=== PATIENT | male | born 1985 | race American Indian/Alaskan Native ===

== ENCOUNTER 2016-07-14 22:58 | Emergency (ER) | payer MEDICAID ==
[2016-07-14 23:10] VITALS: BP 116/60
[2016-07-15] MEDS ORDERED: Cephalexin 500 MG Cap PO ONE (00:06)
--- NOTE | 2016-07-15 00:15 | EDM.PDOC ---
[id number] 4d POSSIBLE BROKEN RIGHT HAND Time Seen by Provider: 07/14/16 23:05 Source: Reports: Patient History Limitations: Reports: No limitations - History of Present Illness INITIAL COMMENTS - FREE TEXT/NARRATIVE: c/o pain to right hand. Notes slammed in sliding van door yesterday afternoon. Originally some discomfort but pain and swelling worse tonight. Occurred When: yesterday Method of Injury: other Severity: mild Allergies/ADRs: Allergies cinnamon Allergy (Verified 07/14/16 23:06) Other Home Medications: Ambulatory Orders . [No Known Home Meds] 05/10/14 [Confirmed 07/14/16] Past Medical History - Past Health History Medical/Surgical History: Denies Medical/Surgical History Social & Family History - Family History Family Medical History: Noncontributory - Tobacco Use Smoking Status *Q: Current Every Day Smoker Years of Tobacco use: 3 Packs/Tins Daily: 0.4 - Caffeine Use Caffeine Use: Reports: Coffee - Alcohol Use Days Per Week of Alcohol Use: 0 - Recreational Drug Use Recreational Drug Use: No - Living Situation & Occupation Living situation: Reports: single Occupation: employed Review of Systems - Review of Systems Review Of Systems: See Below Constitutional: Reports: no symptoms Musculoskeletal: Reports: hand pain (right) Skin: Reports: wound (1cm lacertion back of hand mid 3rd MCP) Neurological: Reports: No Symptoms Trauma Exam - Physical Exam Exam: See Below Exam Limited By: No limitations General Appearance: Reports: alert, mild distress Head: Reports: atraumatic, normocephalic Ears: Reports: normal external exam Nose: Reports: normal inspection Throat/Mouth: Reports: Normal inspection Neck: Reports: full range of motion, normal alignment Respiratory Exam: Reports: no respiratory distress, lungs clear Cardiovascular: Reports: normal peripheral pulses, regular rate, rhythm Extremities: Reports: normal range of motion, pain with movement, tenderness ( right hand swollen no obvious deformity) Neurologic: Reports: oriented x 3 Skin: Reports: Ecchymosis Comments: 1 cm superficial laceration no bleeding or redness to back right hand mid MCP ED TRAUMA EXTREMITY PROCEDURES - Splinting Right Upper Extremity Splint site: hand Splint material: aluminum-foam Splint design: other (metacarpal) Applied & form fitted by: provider Provider post-splint application NV check: NV status normal Complications: No Progress/Comments: bandaide dressing to laceration Course - Vital Signs Last Recorded V/S: Last Vital Signs Temp 96.6 F 07/14/16 23:07 Pulse 60 07/14/16 23:07 Resp 16 07/14/16 23:07 BP 116/60 07/14/16 23:07 Pulse Ox 99 07/14/16 23:07 - Orders/Labs/Meds Meds: Medications Discontinued Medications Generic Name Dose Route Start Last Admin Trade Name Tony PRN Reason Stop Dose Admin Cephalexin 500 mg 07/15/16 00:06 07/15/16 00:13 Keflex PO 07/15/16 00:07 500 mg ONETIME ONE Administration - Radiology Interpretation Free Text/Narrative:: non displaced r fracture 3rd MCP Departure - Departure Time of Disposition: 00:06 Disposition: Home, Self-Care 01 Condition: good Clinical Impression: Fracture of metacarpal bone Qualifiers: Encounter type: initial encounter Metacarpal bone: third Fracture type: open Metacarpal location: other portion of metacarpal Fracture alignment: nondisplaced Laterality: right Qualified Code(s): S62.392B - Other fracture of third metacarpal bone, right hand, initial encounter for open fracture Instructions: Metacarpal Fracture, [id number] Forms: ED Department Discharge Additional Instructions: keflex 500mg one four times daily for one week metacarpal splint elevate tylenol or ibuprofen for discomfort follow up in clinic for recheck 3-4 days and re xray monitor for signs of infections redness swelling drainage.
== END 2016-07-15 00:11 | disposition home or self-care (01) ==
LOC: DL.ED 22:58
DX: S62.392B Other fracture of third metacarpal bone, right hand, initial encounter for open fracture (principal); F17.210 Nicotine dependence, cigarettes, uncomplicated; Z91.02 Food additives allergy status; W23.0XXA Caught, crushed, jammed, or pinched between moving objects, initial encounter
CPT/HCPCS: 73120; 99283; A9270